=== PATIENT | female | born 1970 | race Caucasian/White ===

== ENCOUNTER 2017-11-27 01:51 | Inpatient (IN) | payer OTHER, MEDICARE ==
[~2017-11-27] VITALS: Ht 157.5 cm; Wt 50.8 kg
[2017-11-27] MEDS ORDERED: GABA-531 PO (10:19)
[2017-11-27] MEDS ORDERED: CARI350 PO (10:19)
[2017-11-27] MEDS ORDERED: LEVO100 PO (10:19)
[2017-11-27] MEDS ORDERED: CLON.5 PO (10:19)
[2017-11-27] MEDS ORDERED: METF500T6 PO (10:19)
[2017-11-27] MEDS ORDERED: OXCA300T PO (10:19)
[2017-11-27 11:31] VITALS: BP 126/72
[2017-11-27] MEDS ORDERED: GuaiFENesin/D-METHORPHAN [SUGAR-FREE] 200-20MG/10 ML SYRUP UDCUP PO PRN (12:30)
[2017-11-27] MEDS ORDERED: IBUPROFEN 400 MG TABLET PO PRN (12:30)
[2017-11-27] MEDS ORDERED: MAG HYDROX/AL HYDROX/SIMETH ES 30 ML SUSPENSION UDCUP PO PRN (12:30)
[2017-11-27] MEDS ORDERED: ONDANSETRON HCL 4 MG TABLET PO PRN (12:30)
[2017-11-27] MEDS ORDERED: PETROLATUM,WHITE 71 GM JELLY TP PRN (12:30)
[2017-11-27] MEDS ORDERED: PNEUMOCOCCAL VACCINE POLYVALENT 0.5 ML VIAL [PPSV23] IM ONE (12:30)
[2017-11-27] MEDS ORDERED: ALBUTEROL SULFATE HFA 90 MCG/PUFF 8 GM INHALER IH PRN (12:30)
[2017-11-27] MEDS ORDERED: DOCUSATE SODIUM 100 MG CAPSULE PO PRN (12:30)
[2017-11-27] MEDS ORDERED: ACETAMINOPHEN 325 MG TABLET PO PRN (12:30)
[2017-11-27] MEDS ORDERED: CloNIDine HCL 0.1 MG TABLET PO PRN (12:30)
[2017-11-27] MEDS ORDERED: NICOTINE 14 MG/24 HOUR PATCH TD PRN (12:30)
[2017-11-27] MEDS ORDERED: MAGNESIUM HYDROXIDE SUSPENSION 30 ML UDCUP PO PRN (12:30)
[2017-11-27 13:34] VITALS: BP 148/77
[2017-11-27] MEDS: LORazepam 2 MG TABLET PO PRN (15:36)
[2017-11-27 16:25] VITALS: BP 127/79
[2017-11-27] MEDS: MetFORMIN HCL 500 MG TABLET PO SCH (17:11)
[2017-11-27] MEDS: GABAPENTIN 300 MG CAPSULE PO SCH (17:15)
[2017-11-27] MEDS: OXcarbazepine 300 MG TABLET PO SCH (17:17)
[2017-11-27 17:19] LABS: GLUCOMETER DEV NAME(LOC) BV3S 2; GLUCOSE,POINT OF CARE 84 MG/DL (70-110)
[2017-11-27] MEDS: ZOLPIDEM TARTRATE 10 MG TABLET PO PRN (20:54)
[2017-11-27] MEDS ORDERED: PALIPERIDONE 3 MG ER TABLET PO SCH (21:00)
[2017-11-28] MEDS: LORazepam 2 MG TABLET PO PRN ×3 (04:37→21:21)
[2017-11-28 04:47] VITALS: BP 124/82
[2017-11-28 06:23] LABS: GLUCOMETER DEV NAME(LOC) BV3S 2; GLUCOSE,POINT OF CARE 82 MG/DL (70-110)
[2017-11-28] MEDS: MetFORMIN HCL 500 MG TABLET PO SCH ×2 (06:23→16:55)
[2017-11-28 08:17] LABS: BASOPHILS % (AUTO) 0.4 % (0.0-2.0); EOSINOPHILS % (AUTO) 4.5 % (1.0-6.0); HEMATOCRIT 41.5 % (36-46); LYMPHOCYTES # (AUTO) 1.9 K/uL (1.0-4.8); LYMPHOCYTES % (AUTO) 32.1 % (22.0-44.0); MEAN CORPUSCULAR HEMOGLOBIN 31.9 pg (26.0-34.0); MEAN CORPUSCULAR HGB CONC 33.6 G/dL (31.0-37.0); MEAN CORPUSCULAR VOLUME 95 fL (80-100); MONOCYTES # (AUTO) 0.5 K/uL (0.1-1.0); MONOCYTES % (AUTO) 9.2 % (2.0-9.0); NEUTROPHILS # (AUTO) 3.1 K/uL (1.8-7.7); NEUTROPHILS % (AUTO) 53.8 % (40.0-70.0); PLATELET COUNT (AUTO) 249 K/uL (150-450); RED BLOOD CELL COUNT(AUTO) 4.38 MIL/uL (4.00-5.20); RED CELL DISTRIBUTION WIDTH 13.2 % (11.5-14.5)
[2017-11-28 08:18] LABS: HEMOGLOBIN A1C 5.5 % (4.5-6.2)
[2017-11-28 08:20] VITALS: BP 101/71
[2017-11-28 08:44] LABS: AMPHET/METH SCREEN,URINE NEGATIVE (NEGATIVE); BARBITURATE SCREEN, URINE NEGATIVE (NEGATIVE); BENZODIAZEPINES SCREEN,URINE NEGATIVE (NEGATIVE); CANNABINOID SCREEN,URINE POSITIVE (NEGATIVE); COCAINE SCREEN,URINE NEGATIVE (NEGATIVE); METHADONE SCREEN, URINE NEGATIVE (NEGATIVE); OPIATE SCREEN,URINE NEGATIVE (NEGATIVE)
[2017-11-28 08:45] LABS: PHENCYCLIDINE SCREEN,URINE NEGATIVE (NEGATIVE)
[2017-11-28 08:58] LABS: ALANINE AMINOTRANSFERASE 17 U/L (12-78); ALBUMIN 3.7 g/dL (3.4-5.0); ALKALINE PHOSPHATASE 78 U/L (46-116); ANION GAP 8 mmol/L (8-16); ASPARTATE AMINOTRANSFERASE 14 U/L (15-37); BILIRUBIN,TOTAL 0.9 mg/dL (0.1-1.0); CALCIUM, TOTAL 8.6 mg/dL (8.8-10.5); CARBON DIOXIDE 27 mmol/L (22-29); CHLORIDE 104 mmol/L (98-107); CHOL/HDL RATIO 4.1 (3.9-5.7); CHOLESTEROL 250 mg/dL (131-200); CREATININE 0.67 mg/dL (0.60-1.30); FREE T4 (FREE THYROXINE) 0.74 ng/dL (0.76-1.46); GLOMERULAR FILTR. RATE CALC > 60 mL/min (>60); GLUCOSE,RANDOM 83 mg/dL (70-110); HCG,QUANTITATIVE 3 mIU/mL (0-6); HDL CHOLESTEROL 61 mg/dL (40-60); LDL CHOL (CALC.) 179 mg/dL (0-130); POTASSIUM 4.3 mmol/L (3.5-5.1); SODIUM SERUM 139 mmol/L (136-145); THYROID STIMULATING HORMONE 8.05 uIU/mL (0.36-3.74); TOTAL PROTEIN, SERUM 6.6 g/dL (6.4-8.2); TRIGLYCERIDES 50 mg/dL (15-150); UREA NITROGEN, BLOOD 12 mg/dL (7-18)
[2017-11-28] MEDS: OXcarbazepine 300 MG TABLET PO SCH ×2 (09:10→16:24)
[2017-11-28] MEDS: GABAPENTIN 300 MG CAPSULE PO SCH ×3 (09:10→16:23)
[2017-11-28 09:12] LABS: APPEARANCE,URINE CLEAR (CLEAR); BILIRUBIN,URINE NEGATIVE (NEGATIVE); GLUCOSE, URINE (UA) NEGATIVE (NEGATIVE); KETONES,URINE NEGATIVE (NEGATIVE); LEUKOCYTE ESTERASE ,URINE NEGATIVE (NEGATIVE); NITRATE,URINE NEGATIVE (NEGATIVE); OCCULT BLOOD,URINE NEGATIVE (NEGATIVE); PROTEIN,URINE NEGATIVE (NEGATIVE); UROBILINOGEN,URINE 0.2 mg/dL (<=1.0)
[2017-11-28 12:19] LABS: GLUCOMETER DEV NAME(LOC) BV3S 2; GLUCOSE,POINT OF CARE 90 MG/DL (70-110)
[2017-11-28 16:22] VITALS: BP 110/71
[2017-11-28] MEDS: CARISOPRODOL 350 MG TABLET PO SCH (16:23)
[2017-11-28 17:29] LABS: GLUCOMETER DEV NAME(LOC) BV3S 2; GLUCOSE,POINT OF CARE 83 MG/DL (70-110)
[2017-11-28] MEDS: ZOLPIDEM TARTRATE 10 MG TABLET PO PRN (20:39)
[2017-11-28] MEDS: PALIPERIDONE 6 MG ER TABLET PO SCH (20:39)
[2017-11-29] MEDS: LEVOTHYROXINE SODIUM 100 MCG TABLET PO SCH (06:10)
[2017-11-29] MEDS: MetFORMIN HCL 500 MG TABLET PO SCH ×2 (06:10→16:50)
[2017-11-29 06:23] LABS: GLUCOMETER DEV NAME(LOC) BV3S 2; GLUCOSE,POINT OF CARE 80 MG/DL (70-110)
[2017-11-29 06:56] VITALS: BP 105/70
[2017-11-29 08:22] VITALS: BP 139/76
[2017-11-29] MEDS: GABAPENTIN 300 MG CAPSULE PO SCH ×3 (08:31→16:30)
[2017-11-29] MEDS: OXcarbazepine 300 MG TABLET PO SCH ×2 (08:31→16:30)
[2017-11-29] MEDS: CARISOPRODOL 350 MG TABLET PO SCH ×2 (08:31→16:31)
[2017-11-29] MEDS: LORazepam 2 MG TABLET PO PRN ×3 (09:30→21:23)
[2017-11-29 17:19] VITALS: BP 110/66
[2017-11-29] MEDS: PALIPERIDONE 6 MG ER TABLET PO SCH (20:19)
[2017-11-30 06:32] VITALS: BP 106/68
[2017-11-30] MEDS: LEVOTHYROXINE SODIUM 100 MCG TABLET PO SCH (06:34)
[2017-11-30] MEDS: MetFORMIN HCL 500 MG TABLET PO SCH ×2 (06:34→17:24)
[2017-11-30 06:53] LABS: GLUCOMETER DEV NAME(LOC) BV3S 2; GLUCOSE,POINT OF CARE 86 MG/DL (70-110)
[2017-11-30 06:53] LABS: GLUCOMETER DEV NAME(LOC) BV3S 2; GLUCOSE,POINT OF CARE 81 MG/DL (70-110)
[2017-11-30 06:54] LABS: GLUCOMETER DEV NAME(LOC) BV3S 2; GLUCOSE,POINT OF CARE 75 MG/DL (70-110)
[2017-11-30 08:23] VITALS: BP 118/66
[2017-11-30] MEDS: GABAPENTIN 300 MG CAPSULE PO SCH ×3 (08:29→17:24)
[2017-11-30] MEDS: OXcarbazepine 300 MG TABLET PO SCH ×2 (08:29→17:24)
[2017-11-30] MEDS: CARISOPRODOL 350 MG TABLET PO SCH ×2 (08:30→17:24)
[2017-11-30] MEDS: LORazepam 2 MG TABLET PO PRN ×2 (08:30→17:25)
[2017-11-30 11:49] LABS: GLUCOMETER DEV NAME(LOC) BV3S 2; GLUCOSE,POINT OF CARE 69 MG/DL (70-110)
[2017-11-30] MEDS: LOPERAMIDE HCL 2 MG CAPSULE PO PRN ×2 (13:15→17:25)
[2017-11-30 14:18] LABS: GLUCOMETER DEV NAME(LOC) BV3S 2; GLUCOSE,POINT OF CARE 109 MG/DL (70-110)
[2017-11-30 17:09] VITALS: BP 119/76
[2017-11-30 17:33] LABS: GLUCOMETER DEV NAME(LOC) BV3S 2; GLUCOSE,POINT OF CARE 111 MG/DL (70-110)
[2017-11-30] MEDS: PALIPERIDONE 6 MG ER TABLET PO SCH (20:17)
[2017-11-30] MEDS: ZOLPIDEM TARTRATE 10 MG TABLET PO PRN (20:17)
[2017-12-01] VITALS (7 sets, daily range): BP systolic 74–116; BP diastolic 43–71
[2017-12-01] MEDS: LEVOTHYROXINE SODIUM 100 MCG TABLET PO SCH (06:46)
[2017-12-01] MEDS: MetFORMIN HCL 500 MG TABLET PO SCH ×3 (06:46→16:49)
[2017-12-01] MEDS: OXcarbazepine 300 MG TABLET PO SCH ×2 (08:51→16:49)
[2017-12-01] MEDS: CARISOPRODOL 350 MG TABLET PO SCH ×2 (08:51→17:12)
[2017-12-01] MEDS: GABAPENTIN 300 MG CAPSULE PO SCH ×3 (08:51→16:49)
[2017-12-01 10:05] LABS: GLUCOMETER DEV NAME(LOC) BV3S 2; GLUCOSE,POINT OF CARE 75 MG/DL (70-110)
[2017-12-01 11:49] LABS: GLUCOMETER DEV NAME(LOC) BV3S 2; GLUCOSE,POINT OF CARE 78 MG/DL (70-110)
[2017-12-01] MEDS: LORazepam 2 MG TABLET PO PRN ×2 (11:52→20:17)
[2017-12-01 17:04] LABS: GLUCOMETER DEV NAME(LOC) BV3S 2; GLUCOSE,POINT OF CARE 84 MG/DL (70-110)
[2017-12-01] MEDS: PALIPERIDONE 6 MG ER TABLET PO SCH (20:17)
[2017-12-01] MEDS: ZOLPIDEM TARTRATE 10 MG TABLET PO PRN (21:36)
[2017-12-02 04:00] VITALS: BP 100/60
[2017-12-02] MEDS: LEVOTHYROXINE SODIUM 100 MCG TABLET PO SCH (06:36)
[2017-12-02] MEDS: MetFORMIN HCL 500 MG TABLET PO SCH ×2 (07:00→16:44)
[2017-12-02] MEDS: OXcarbazepine 300 MG TABLET PO SCH ×2 (08:44→16:44)
[2017-12-02] MEDS: GABAPENTIN 300 MG CAPSULE PO SCH ×3 (08:44→16:44)
[2017-12-02] MEDS: CARISOPRODOL 350 MG TABLET PO SCH ×2 (08:55→16:44)
[2017-12-02 09:41] VITALS: BP 104/73
[2017-12-02 12:15] LABS: GLUCOMETER DEV NAME(LOC) BV3S 2; GLUCOSE,POINT OF CARE 85 MG/DL (70-110)
[2017-12-02 12:15] LABS: GLUCOMETER DEV NAME(LOC) BV3S 2; GLUCOSE,POINT OF CARE 82 MG/DL (70-110)
[2017-12-02] MEDS: LORazepam 2 MG TABLET PO PRN ×3 (12:58→22:09)
[2017-12-02 16:48] LABS: GLUCOMETER DEV NAME(LOC) BV3S 2; GLUCOSE,POINT OF CARE 90 MG/DL (70-110)
[2017-12-02 17:30] VITALS: BP 110/62
[2017-12-02] MEDS: PALIPERIDONE 6 MG ER TABLET PO SCH (20:24)
[2017-12-02] MEDS: ZOLPIDEM TARTRATE 10 MG TABLET PO PRN (20:56)
[2017-12-03 04:00] VITALS: BP 100/60
[2017-12-03] MEDS: LEVOTHYROXINE SODIUM 100 MCG TABLET PO SCH (07:08)
[2017-12-03] MEDS: MetFORMIN HCL 500 MG TABLET PO SCH ×2 (07:08→16:18)
[2017-12-03 08:30] VITALS: BP 112/77
[2017-12-03] MEDS: CARISOPRODOL 350 MG TABLET PO SCH ×2 (08:41→16:18)
[2017-12-03] MEDS: OXcarbazepine 300 MG TABLET PO SCH ×2 (08:41→16:18)
[2017-12-03] MEDS: LORazepam 2 MG TABLET PO PRN (08:41)
[2017-12-03] MEDS: GABAPENTIN 300 MG CAPSULE PO SCH ×3 (08:42→16:18)
[2017-12-03] MEDS ORDERED: PALIPERIDONE PALMITATE 156 MG/ML SYRINGE IM SCH (09:00)
[2017-12-03] MEDS ORDERED: PALI156D IM (09:31)
[2017-12-03] MEDS ORDERED: PALI6 PO (09:31)
[2017-12-03 13:44] LABS: GLUCOMETER DEV NAME(LOC) BV3S 2; GLUCOSE,POINT OF CARE 90 MG/DL (70-110)
[2017-12-03 16:35] LABS: GLUCOMETER DEV NAME(LOC) BV3S 2; GLUCOSE,POINT OF CARE 98 MG/DL (70-110)
[2017-12-03 17:34] VITALS: BP 102/65
== END 2017-12-03 17:55 | disposition home or self-care (01) | DRG 885 ==
LOC: B3A 11:31
PROVIDERS: ADMIT Psychiatry & Neurology Psychiatry; ATTEND Psychiatry & Neurology Psychiatry
PROC: 3E0334Z Introduction of Serum, Toxoid and Vaccine into Peripheral Vein, Percutaneous Approach (ICD-10-PCS; principal; 2017-11-27)
DX: F25.0 Schizoaffective disorder, bipolar type (principal); R45.851 Suicidal ideations; E03.9 Hypothyroidism, unspecified; E11.9 Type 2 diabetes mellitus without complications; E78.5 Hyperlipidemia, unspecified; F12.90 Cannabis use, unspecified, uncomplicated; F17.200 Nicotine dependence, unspecified, uncomplicated; F41.9 Anxiety disorder, unspecified; G40.909 Epilepsy, unspecified, not intractable, without status epilepticus; G89.29 Other chronic pain; Z79.899 Other long term (current) drug therapy; Z91.19 Patient's noncompliance with other medical treatment and regimen; Z91.5 Personal history of self-harm; Z81.8 Family history of other mental and behavioral disorders; Z71.6 Tobacco abuse counseling; Z71.51 Drug abuse counseling and surveillance of drug abuser; Z23 Encounter for immunization; Z79.84 Long term (current) use of oral hypoglycemic drugs; Z88.8 Allergy status to other drugs, medicaments and biological substances; Z91.030 Bee allergy status
CPT/HCPCS: 80183; 80307; 83036; 84439; 84443; 90471

== ENCOUNTER 2018-02-07 12:17 | Inpatient (IN) | payer BC ==
[~2018-02-07] VITALS: Ht 157.5 cm; Wt 53.1 kg
[~2018-02-07 12:17] MED LIST: CARI350 PO; GABA-531 PO; LEVO100 PO; METF-960 PO; OXCA300T29 PO; PALI156D IM; PALI6 PO
[2018-02-07 13:16] VITALS: BP 111/76
[2018-02-07 16:17] VITALS: BP 130/86
[2018-02-07 16:32] LABS: GLUCOMETER DEV NAME(LOC) BV2N3; GLUCOSE,POINT OF CARE 109 MG/DL (70-110)
[2018-02-07] MEDS ORDERED: CloNIDine HCL 0.1 MG TABLET PO PRN (17:45)
[2018-02-07] MEDS ORDERED: ALBUTEROL SULFATE HFA 90 MCG/PUFF 8 GM INHALER IH PRN (17:45)
[2018-02-07] MEDS ORDERED: DOCUSATE SODIUM 100 MG CAPSULE PO PRN (17:45)
[2018-02-07] MEDS ORDERED: MAG HYDROX/AL HYDROX/SIMETH ES 30 ML SUSPENSION UDCUP PO PRN (17:45)
[2018-02-07] MEDS ORDERED: PETROLATUM,WHITE 71 GM JELLY TP PRN (17:45)
[2018-02-07] MEDS ORDERED: NICOTINE 14 MG/24 HOUR PATCH TD PRN (17:45)
[2018-02-07] MEDS ORDERED: ONDANSETRON HCL 4 MG TABLET PO PRN (17:45)
[2018-02-07] MEDS ORDERED: MAGNESIUM HYDROXIDE SUSPENSION 30 ML UDCUP PO PRN (17:45)
[2018-02-07] MEDS ORDERED: LOPERAMIDE HCL 2 MG CAPSULE PO PRN (17:45)
[2018-02-07] MEDS ORDERED: ACETAMINOPHEN 325 MG TABLET PO PRN (17:45)
[2018-02-07] MEDS ORDERED: IBUPROFEN 400 MG TABLET PO PRN (17:45)
[2018-02-07] MEDS ORDERED: GuaiFENesin/D-METHORPHAN [SUGAR-FREE] 200-20MG/10 ML SYRUP UDCUP PO PRN (17:45)
[2018-02-07] MEDS: LORazepam 2 MG TABLET PO PRN (18:09)
[2018-02-07] MEDS: GABAPENTIN 300 MG CAPSULE PO SCH (20:15)
[2018-02-08] MEDS: LORazepam 2 MG TABLET PO PRN ×3 (03:07→16:26)
[2018-02-08 03:30] VITALS: BP 112/66
[2018-02-08] MEDS: LEVOTHYROXINE SODIUM 100 MCG TABLET PO SCH (05:54)
[2018-02-08 05:58] LABS: GLUCOMETER DEV NAME(LOC) BV2N3; GLUCOSE,POINT OF CARE 92 MG/DL (70-110)
[2018-02-08] MEDS: MetFORMIN HCL 500 MG TABLET PO SCH ×2 (06:53→17:30)
[2018-02-08 08:33] LABS: BASOPHILS % (AUTO) 0.5 % (0.0-2.0); EOSINOPHILS % (AUTO) 3.9 % (1.0-6.0); HEMATOCRIT 42.3 % (36-46); HEMOGLOBIN 14.2 g/dL (12.0-16.0); LYMPHOCYTES # (AUTO) 2.2 K/uL (1.0-4.8); MEAN CORPUSCULAR HEMOGLOBIN 31.7 pg (26.0-34.0); MEAN CORPUSCULAR HGB CONC 33.5 G/dL (31.0-37.0); MEAN CORPUSCULAR VOLUME 95 fL (80-100); MONOCYTES # (AUTO) 0.5 K/uL (0.1-1.0); MONOCYTES % (AUTO) 7.3 % (2.0-9.0); NEUTROPHILS # (AUTO) 3.8 K/uL (1.8-7.7); NEUTROPHILS % (AUTO) 56.3 % (40.0-70.0); PLATELET COUNT (AUTO) 365 K/uL (150-450); RED BLOOD CELL COUNT(AUTO) 4.47 MIL/uL (4.00-5.20); RED CELL DISTRIBUTION WIDTH 14.2 % (11.5-14.5)
[2018-02-08 08:44] VITALS: BP 106/67
[2018-02-08] MEDS: OXcarbazepine 300 MG TABLET PO SCH ×2 (08:46→17:29)
[2018-02-08] MEDS: GABAPENTIN 300 MG CAPSULE PO SCH ×4 (08:46→20:46)
[2018-02-08 09:01] LABS: HEMOGLOBIN A1C 5.7 % (4.5-6.2)
[2018-02-08 09:31] LABS: ALANINE AMINOTRANSFERASE 22 U/L (12-78); ALBUMIN 3.8 g/dL (3.4-5.0); ALKALINE PHOSPHATASE 86 U/L (46-116); ANION GAP 9 mmol/L (8-16); ASPARTATE AMINOTRANSFERASE 12 U/L (15-37); BILIRUBIN,TOTAL 0.4 mg/dL (0.1-1.0); CALCIUM, TOTAL 8.6 mg/dL (8.8-10.5); CARBON DIOXIDE 26 mmol/L (22-29); CHLORIDE 102 mmol/L (98-107); CHOL/HDL RATIO 4.5 (3.9-5.7); CHOLESTEROL 257 mg/dL (131-200); CREATININE 0.75 mg/dL (0.60-1.30); GLOMERULAR FILTR. RATE CALC > 60 mL/min (>60); GLUCOSE,RANDOM 103 mg/dL (70-110); HDL CHOLESTEROL 57 mg/dL (40-60); LDL CHOL (CALC.) 182 mg/dL (0-130); SODIUM SERUM 137 mmol/L (136-145); THYROID STIMULATING HORMONE 3.44 uIU/mL (0.36-3.74); TOTAL PROTEIN, SERUM 6.9 g/dL (6.4-8.2); TRIGLYCERIDES 88 mg/dL (15-150); UREA NITROGEN, BLOOD 8 mg/dL (7-18)
[2018-02-08 16:30] VITALS: BP 121/78
[2018-02-08 16:39] LABS: GLUCOMETER DEV NAME(LOC) BV2N3; GLUCOSE,POINT OF CARE 88 MG/DL (70-110)
[2018-02-08] MEDS: ZOLPIDEM TARTRATE 10 MG TABLET PO PRN (21:21)
[2018-02-09 00:35] VITALS: BP 120/81
[2018-02-09] MEDS: LORazepam 2 MG TABLET PO PRN ×3 (01:04→20:17)
[2018-02-09] MEDS: LEVOTHYROXINE SODIUM 100 MCG TABLET PO SCH (06:28)
[2018-02-09 06:48] LABS: GLUCOMETER DEV NAME(LOC) BV2N3; GLUCOSE,POINT OF CARE 95 MG/DL (70-110)
[2018-02-09] MEDS: MetFORMIN HCL 500 MG TABLET PO SCH ×2 (07:10→16:42)
[2018-02-09] MEDS: OXcarbazepine 300 MG TABLET PO SCH ×2 (08:06→16:42)
[2018-02-09] MEDS: GABAPENTIN 300 MG CAPSULE PO SCH ×4 (08:06→20:17)
[2018-02-09 08:19] VITALS: BP 100/65
[2018-02-09 16:11] VITALS: BP 109/70
[2018-02-09] MEDS: PALIPERIDONE 6 MG ER TABLET PO SCH (20:17)
[2018-02-09] MEDS: ZOLPIDEM TARTRATE 10 MG TABLET PO PRN (20:17)
[2018-02-09] MEDS ORDERED: PALIPERIDONE 6 MG ER TABLET PO SCH (21:00)
[2018-02-10 04:39] VITALS: BP 110/68
[2018-02-10] MEDS: LEVOTHYROXINE SODIUM 100 MCG TABLET PO SCH (06:23)
[2018-02-10] MEDS: MetFORMIN HCL 500 MG TABLET PO SCH ×2 (07:06→16:55)
[2018-02-10 07:08] LABS: GLUCOMETER DEV NAME(LOC) BV2N3; GLUCOSE,POINT OF CARE 90 MG/DL (70-110)
[2018-02-10 08:06] VITALS: BP 111/66
[2018-02-10] MEDS: OXcarbazepine 300 MG TABLET PO SCH ×2 (08:25→16:55)
[2018-02-10] MEDS: GABAPENTIN 300 MG CAPSULE PO SCH ×4 (08:25→20:10)
[2018-02-10] MEDS ORDERED: LEVO50TA11 PO (10:59)
[2018-02-10] MEDS ORDERED: PALI6 PO (10:59)
[2018-02-10] MEDS: LORazepam 2 MG TABLET PO PRN (13:11)
[2018-02-10 16:48] LABS: GLUCOMETER DEV NAME(LOC) BV2N3; GLUCOSE,POINT OF CARE 113 MG/DL (70-110)
[2018-02-10 19:08] VITALS: BP 123/71
[2018-02-10] MEDS: PALIPERIDONE 6 MG ER TABLET PO SCH (20:10)
[2018-02-11 04:29] VITALS: BP 120/81
[2018-02-11] MEDS: MetFORMIN HCL 500 MG TABLET PO SCH ×3 (07:00→17:13)
[2018-02-11] MEDS: LEVOTHYROXINE SODIUM 100 MCG TABLET PO SCH (07:12)
[2018-02-11 07:48] LABS: GLUCOMETER DEV NAME(LOC) BV2N3; GLUCOSE,POINT OF CARE 101 MG/DL (70-110)
[2018-02-11] MEDS: GABAPENTIN 300 MG CAPSULE PO SCH ×4 (08:28→20:32)
[2018-02-11] MEDS: OXcarbazepine 300 MG TABLET PO SCH ×2 (08:28→16:29)
[2018-02-11 08:30] VITALS: BP 107/75
[2018-02-11] MEDS: LORazepam 2 MG TABLET PO PRN ×3 (09:48→20:54)
[2018-02-11 16:08] VITALS: BP 116/72
[2018-02-11 16:33] LABS: GLUCOMETER DEV NAME(LOC) BV2N3; GLUCOSE,POINT OF CARE 92 MG/DL (70-110)
[2018-02-11] MEDS: PALIPERIDONE 6 MG ER TABLET PO SCH (20:32)
[2018-02-12 00:43] VITALS: BP 118/72
[2018-02-12] MEDS: LEVOTHYROXINE SODIUM 100 MCG TABLET PO SCH (06:09)
[2018-02-12 06:29] LABS: GLUCOMETER DEV NAME(LOC) BV2N3; GLUCOSE,POINT OF CARE 98 MG/DL (70-110)
[2018-02-12] MEDS: MetFORMIN HCL 500 MG TABLET PO SCH (06:48)
[2018-02-12 08:13] VITALS: BP 108/67
[2018-02-12] MEDS: GABAPENTIN 300 MG CAPSULE PO SCH ×3 (08:45→16:19)
[2018-02-12] MEDS: OXcarbazepine 300 MG TABLET PO SCH ×2 (08:45→16:19)
[2018-02-12] MEDS: LORazepam 2 MG TABLET PO PRN ×2 (09:27→14:48)
[2018-02-12 16:23] LABS: GLUCOMETER DEV NAME(LOC) BV2N3; GLUCOSE,POINT OF CARE 90 MG/DL (70-110)
[2018-03-09] MEDS ORDERED: PALIPERIDONE PALMITATE 156 MG/ML SYRINGE IM SCH (09:00)
== END 2018-02-12 17:40 | disposition home or self-care (01) | DRG 885 ==
LOC: B2X 14:39
PROVIDERS: ADMIT Psychiatry & Neurology Psychiatry; ATTEND Psychiatry & Neurology Psychiatry
DX: F25.1 Schizoaffective disorder, depressive type (principal); R45.851 Suicidal ideations; G40.909 Epilepsy, unspecified, not intractable, without status epilepticus; E78.5 Hyperlipidemia, unspecified; E03.9 Hypothyroidism, unspecified; E11.9 Type 2 diabetes mellitus without complications; G89.29 Other chronic pain; R45.87 Impulsiveness; R45.1 Restlessness and agitation; Z59.0 Homelessness; Z88.8 Allergy status to other drugs, medicaments and biological substances; Z91.14 Patient's other noncompliance with medication regimen; Z91.030 Bee allergy status; Z79.84 Long term (current) use of oral hypoglycemic drugs
CPT/HCPCS: 83036; 84439; 84443; 90686

== ENCOUNTER 2018-04-10 11:16 | Inpatient (IN) | payer BC ==
[~2018-04-10] VITALS: Ht 157.5 cm; Wt 54.9 kg
[~2018-04-10 11:16] MED LIST changes: -CARI350 PO; -LEVO100 PO; +LEVO50TA11 PO; -PALI156D IM
[2018-04-10 13:24] VITALS: BP 123/84
[2018-04-10] MEDS: ZOLPIDEM TARTRATE 10 MG TABLET PO PRN (15:11)
[2018-04-10] MEDS ORDERED: MAG HYDROX/AL HYDROX/SIMETH ES 30 ML SUSPENSION UDCUP PO PRN (15:45)
[2018-04-10] MEDS ORDERED: ONDANSETRON HCL 4 MG TABLET PO PRN (15:45)
[2018-04-10] MEDS ORDERED: CloNIDine HCL 0.1 MG TABLET PO PRN (15:45)
[2018-04-10] MEDS ORDERED: ACETAMINOPHEN 325 MG TABLET PO PRN (15:45)
[2018-04-10] MEDS ORDERED: NICOTINE 14 MG/24 HOUR PATCH TD PRN (15:45)
[2018-04-10] MEDS ORDERED: PETROLATUM,WHITE 71 GM JELLY TP PRN (15:45)
[2018-04-10] MEDS ORDERED: IBUPROFEN 400 MG TABLET PO PRN (15:45)
[2018-04-10] MEDS ORDERED: MAGNESIUM HYDROXIDE SUSPENSION 30 ML UDCUP PO PRN (15:45)
[2018-04-10] MEDS ORDERED: ALBUTEROL SULFATE HFA 90 MCG/PUFF 8 GM INHALER IH PRN (15:45)
[2018-04-10] MEDS ORDERED: GuaiFENesin/D-METHORPHAN [SUGAR-FREE] 200-20MG/10 ML SYRUP UDCUP PO PRN (15:45)
[2018-04-10] MEDS ORDERED: DOCUSATE SODIUM 100 MG CAPSULE PO PRN (15:45)
[2018-04-10] MEDS ORDERED: LOPERAMIDE HCL 2 MG CAPSULE PO PRN (15:45)
[2018-04-10] MEDS: LORazepam 2 MG TABLET PO PRN (15:49)
[2018-04-10 16:06] VITALS: BP 121/82
[2018-04-10] MEDS: GABAPENTIN 300 MG CAPSULE PO SCH ×2 (16:56→20:16)
[2018-04-10] MEDS: OXcarbazepine 300 MG TABLET PO SCH (16:56)
[2018-04-10 17:15] LABS: GLUCOMETER DEV NAME(LOC) BV2S.; GLUCOSE,POINT OF CARE 97 MG/DL (70-110)
[2018-04-10] MEDS ORDERED: LEVO100 PO (17:32)
[2018-04-11 00:03] VITALS: BP 113/80
[2018-04-11] MEDS: LORazepam 2 MG TABLET PO PRN ×2 (00:10→14:41)
[2018-04-11] MEDS ORDERED: -PHARMACY VACCINE NOTE- MISC ONE (00:15)
[2018-04-11 07:29] LABS: BASOPHILS % (AUTO) 0.5 % (0.0-2.0); EOSINOPHILS % (AUTO) 3.8 % (1.0-6.0); HEMATOCRIT 40.8 % (36-46); HEMOGLOBIN 14.6 g/dL (12.0-16.0); LYMPHOCYTES % (AUTO) 32.6 % (22.0-44.0); MEAN CORPUSCULAR HEMOGLOBIN 33.3 pg (26.0-34.0); MEAN CORPUSCULAR HGB CONC 35.9 G/dL (31.0-37.0); MEAN CORPUSCULAR VOLUME 93 fL (80-100); MONOCYTES # (AUTO) 0.5 K/uL (0.1-1.0); MONOCYTES % (AUTO) 8.8 % (2.0-9.0); NEUTROPHILS # (AUTO) 3.4 K/uL (1.8-7.7); NEUTROPHILS % (AUTO) 54.3 % (40.0-70.0); PLATELET COUNT (AUTO) 330 K/uL (150-450); RED BLOOD CELL COUNT(AUTO) 4.39 MIL/uL (4.00-5.20); RED CELL DISTRIBUTION WIDTH 13.5 % (11.5-14.5)
[2018-04-11 07:46] LABS: HEMOGLOBIN A1C 5.6 % (4.5-6.2)
[2018-04-11 08:00] LABS: ALANINE AMINOTRANSFERASE 26 U/L (12-78); ALBUMIN 3.5 g/dL (3.4-5.0); ALKALINE PHOSPHATASE 96 U/L (46-116); ANION GAP 7 mmol/L (8-16); ASPARTATE AMINOTRANSFERASE 15 U/L (15-37); BILIRUBIN,TOTAL 0.4 mg/dL (0.1-1.0); CALCIUM, TOTAL 8.8 mg/dL (8.8-10.5); CARBON DIOXIDE 30 mmol/L (22-29); CHLORIDE 102 mmol/L (98-107); CHOL/HDL RATIO 5.7 (3.9-5.7); CHOLESTEROL 222 mg/dL (131-200); CREATININE 0.86 mg/dL (0.60-1.30); FREE T4 (FREE THYROXINE) 1.08 ng/dL (0.76-1.46); GLOMERULAR FILTR. RATE CALC > 60 mL/min (>60); GLUCOSE,RANDOM 90 mg/dL (70-110); HCG,QUANTITATIVE 1 mIU/mL (0-6); HDL CHOLESTEROL 39 mg/dL (40-60); LDL CHOL (CALC.) 161 mg/dL (0-130); POTASSIUM 4.9 mmol/L (3.5-5.1); SODIUM SERUM 139 mmol/L (136-145); THYROID STIMULATING HORMONE 0.18 uIU/mL (0.36-3.74); TOTAL PROTEIN, SERUM 6.2 g/dL (6.4-8.2); TRIGLYCERIDES 110 mg/dL (15-150); UREA NITROGEN, BLOOD 13 mg/dL (7-18)
[2018-04-11 08:08] VITALS: BP 112/74
[2018-04-11] MEDS: OXcarbazepine 300 MG TABLET PO SCH ×2 (08:34→16:51)
[2018-04-11] MEDS: GABAPENTIN 300 MG CAPSULE PO SCH ×4 (08:34→20:17)
[2018-04-11] MEDS ORDERED: OLANZapine 5 MG RAPDIS TABLET PO PRN (11:00)
[2018-04-11 16:05] VITALS: BP 114/75
[2018-04-11] MEDS: OLANZapine 10 MG TABLET PO SCH (20:17)
[2018-04-11] MEDS: ZOLPIDEM TARTRATE 10 MG TABLET PO PRN (20:31)
[2018-04-12 05:56] VITALS: BP 108/72
[2018-04-12 08:54] VITALS: BP 101/63
[2018-04-12] MEDS: GABAPENTIN 300 MG CAPSULE PO SCH ×4 (09:13→20:28)
[2018-04-12] MEDS: OXcarbazepine 300 MG TABLET PO SCH ×2 (09:14→16:51)
[2018-04-12 09:41] VITALS: BP 118/69
[2018-04-12] MEDS: LORazepam 2 MG TABLET PO PRN ×2 (09:41→17:04)
[2018-04-12 16:50] VITALS: BP 115/69
[2018-04-12] MEDS: OLANZapine 10 MG TABLET PO SCH (20:28)
[2018-04-13 02:30] VITALS: BP 113/73
[2018-04-13] MEDS: OXcarbazepine 300 MG TABLET PO SCH (08:12)
[2018-04-13] MEDS: GABAPENTIN 300 MG CAPSULE PO SCH ×2 (08:12→12:40)
[2018-04-13] MEDS: LORazepam 2 MG TABLET PO PRN (08:19)
[2018-04-13 08:31] VITALS: BP 106/60
[2018-04-13] MEDS ORDERED: OLAN10TA3 PO (10:36)
== END 2018-04-13 13:40 | disposition home or self-care (01) | DRG 885 ==
LOC: B2X 14:52
DX: F25.1 Schizoaffective disorder, depressive type (principal); R45.851 Suicidal ideations; E03.9 Hypothyroidism, unspecified; E11.9 Type 2 diabetes mellitus without complications; E78.5 Hyperlipidemia, unspecified; F17.200 Nicotine dependence, unspecified, uncomplicated; G40.909 Epilepsy, unspecified, not intractable, without status epilepticus; Z91.5 Personal history of self-harm; Z71.6 Tobacco abuse counseling; Z88.8 Allergy status to other drugs, medicaments and biological substances; Z91.030 Bee allergy status; Z59.0 Homelessness; Z79.899 Other long term (current) drug therapy
CPT/HCPCS: 83036; 84439; 84443; Q0162